=== PATIENT | female | born 1970 | race Caucasian/White ===

== ENCOUNTER → 2021-04-17 | Outpatient (CLI) | payer BC ==
[~2021-04-17] MED LIST: ATOR10TA60 PO; BUPIVACAINE MPF 0.25% 10 ML VIAL. ONE; CYCL10TA19 PO; IOHEXOL 180 MG/ML 10 ML VIAL. ONE; LOSA-73 PO; methylPREDNISolone ACETATE 40 MG/ML VIAL. ONE; methylPREDNISolone ACETATE 80 MG/ML VIAL. ONE
--- NOTE | 2021-04-17 13:00 | PDOC1 ---
INITIAL PAIN CONSULT DATE OF SERVICE: DOS: DATE: 04/17/21 TIME: 12:51 CHIEF COMPLAINT: Chief Complaint: Right-sided low back pain HISTORY OF PRESENT ILLNESS: 50-year-old female presents history of pain in the low back on the right side for about 2 years status post previous hip surgery. Patient reports pain in the low back itself not radiating in the hip or the lower extremity but just in the low back on the right side only patient reports this is been going on for about 2 years is worse with standing walking changing positions sitting for prolonged periods getting up from a seated position especially as it during sleep about once or twice a night. Patient reports is constant and throbbing in the low back intermittent intensity always present radiating across the low back at times into the midline but not to the left patient reports is primarily worse in the evening or at night also described as aching in the low back itself primarily. Patient reports that again it wakes her from sleep once or twice a night does not affect her bowel bladder control but does affect her ability to walk she feels as stiffness with driving sitting or standing for more than 20 to 30 minutes. Patient has had trigger point injections physical therapy epidural injections chiropractic treatment and exercise which is ongoing also taking cyclobenzaprine which is helpful patient tried [id number] Tylenol but anti-inflammatories do upset her stomach so she is not been using those. Patient is doing yoga swimming which he stopped doing this he recently because of pain. Patient rates disability rating 0-10 10 being the worst as a 4 family home responsibilities and social activity 6 with recreation 3 with occupation to a sexual behavior and self-care/support activities specially sleeping. Patient did have a MRI scan lumbar spine showing multilevel disc degeneration and facet arthropathy most pronounced on the right at L4-5. PAST MEDICAL HISTORY: PMH: Hypertension, arthritis, bone spurs right hip PREVIOUS SURGERIES: Past Surgical Hx: x2, tubal ligation, right hip surgery CURRENT MEDICATIONS: Current Meds: Active Scripts Medications Dose Route/Sig Max Daily Dose Days Date Category Losartan Potassium 50 Mg Tablet 50 Mg PO DAILY 04/17/21 Reported Cyclobenzaprine Hcl 10 Mg Tablet 1 Tab PO TID 04/17/21 Reported Atorvastatin Calcium 10 Mg Tablet 10 Mg PO HS 04/17/21 Reported ALLERGIES; Allergies: Coded Allergies: ibuprofen (Verified Allergy, Severe, ulsers, 04/17/21) Sulfa (Sulfonamide Antibiotics) (Verified Allergy, Intermediate, rash, 04/17/21) latex (Verified Allergy, Intermediate, rash, 04/17/21) FAMILY HISTORY: Family Hx: No previous family history. SOCIAL HISTORY: Social Hx: Patient is under alcohol does not smoke says any illegal illicit or recreational drugs is lives with her spouse has 2 children at home and lives in [place], [place] REVIEW OF SYSTEMS: ROS: Positive for those items mentioned in history of present illness, all systems are reviewed, otherwise negative ,and are complete full and well-documented on patient's chart. PHYSICAL EXAM: VS: Blood pressure is 150/100 pulse 105 respirations 18 temperature is 98.3 F height is 5 feet 2 inches weight is 206 pounds PE: PHYSICAL EXAMINATION: GENERAL: The patient is awake, alert, oriented, appropriate, very pleasant in demeanor HEENT: Shows normocephalic, atraumatic. Extraocular movements are intact and symmetrical. Oral cavity: Mucous membranes moist and pink. Dentition is intact. NECK: Shows anterior throat supple without palpable lymphadenopathy noted. Swallow reflex symmetrical. CHEST: Shows normal on inspection. Breath sounds are clear bilaterally, distant but no rales or. HEART: Shows S1, S2 clear. No murmurs auscultated. ABDOMEN: Soft, nontender, nondistended, obese. No palpable organomegaly is noted. No rebound or guarding demonstrated. BACK: Shows spine grossly in the midline. Normal-appearing cervical lordotic curvature. There is increased thoracic kyphosis, some flattening of the lumbar lordotic curvature. Lumbar paraspinous muscles show symmetrical on inspection, on palpation shows some moderate tenderness diffusely throughout the upper, middle and lower distribution of the paraspinous muscles bilaterally and also into the lower thoracic paraspinous musculature, firm and tender, but without specific trigger points, without radiation of pain. The patient has good rotational motion of the lumbar spine, both laterally as well as extension and flexion with moderate tenderness with right lateral rotation as well as left lateral rotation and extension significantly of the lumbar spine greater than 10 degrees, forward flexion is performed at 45 degrees without difficulty. No tenderness over the spinous processes, sacrum or sacroiliac regions. EXTREMITIES: Lower extremities show deep tendon reflexes 2+ in the patellar and tendo calcaneus tendons. Motor exam is 4 on a scale of 5 with right dorsiflexion, extension, quadriceps and hamstring flexion and 5/5 on the left. Peripheral pulses are 1+ no posterior tibial. No peripheral edema is noted bilaterally. Lower extremities are warm and dry to touch, equal in color and a ppearance. Straight leg raise noted to be negative bilaterally. Gaenslen's and Hilario's maneuvers are negative bilaterally as well. The patient is able to stand, stand on her toes without significant difficulty loss of balance walks with a normal-appearing gait does not appear to favor the right or left lower extremity significantly is not use any assistive devices to ambulate. SKIN: Shows warm and dry, good turgor. No edema. No sores, rashes or bruising throughout. IMPRESSION: Impression: 50-year-old female with approximate 2-year history right-sided pain consistent with facet agenic pain and degenerative disc disease. MRI scan lumbar spine as noted Hypertension Arthritis Obesity Plan: Options were discussed with the patient including serve medical managements, physical therapies, interventional techniques. Patient like to pursue interventional techniques. We discussed a right-sided L4-5 and L5-S1 facet medial branch blocks with fluoroscopic guidance, using description as well as anatomical models to describe the procedure. Risks were discussed including but not limited to: Bleeding, infection, possibility of epidural hematoma and subsequent neurological compromise, dural puncture, headaches, spinal cord and/or nerve damage, side effects of steroid medication, and poor results regarding pain control. Patient understands and wished to proceed. Patient return to clinic in approximately 2 weeks for follow-up, was counseled as return appointment, typical, and side effects to be aware of. Under sterile prep and drape using C-arm fluoroscopic guidance AP and lateral and oblique views, right L4-5 and L5-S1 facet joint MB's injections were performed, using quinke needles with stylette's x2, medications injected: 120 mg Depo-Medrol +2cc 0.25% bupivacaine +1 cc contrast. Condition at discharge stable patient tolerated the procedure well and no complications. YANN KO MD Apr 17, 2021 13:00
--- NOTE | 2021-04-17 13:01 | PDOC4 ---
Procedure Note: ICD 10 Code: ICD 10 Code: M4 7.816 M4 7.817 M51.36 Procedure Note: Patient was consented for right-sided L4-5 and L5-S1 facet medial branch blocks with fluoroscopic guidance. Risks were discussed including but not limited to: Bleeding, infection, possibility of epidural hematoma and subsequent neurol ogical compromise, dural puncture, headaches, spinal cord and/or nerve damage, side effects of steroid medication, and poor results regarding pain control. Patient understands and wished to proceed. Under sterile prep and drape using C-arm fluoroscopic guidance AP and lateral and oblique views, right L4-5 and L5-S1 facet joint MB's injections were performed, using quinke needles with stylette's x2, medications injected: 120 mg Depo-Medrol +2cc 0.25% bupivacaine +1 cc contrast. Condition at discharge jose armando stallings patient tolerated the procedure well and no complications. YANN KO MD Apr 17, 2021 13:01
== END | disposition home or self-care (01) ==
LOC: PNCL 08:05
PROVIDERS: ATTEND Anesthesiology
DX: M51.36 Other intervertebral disc degeneration, lumbar region (principal); M47.817 Spondylosis without myelopathy or radiculopathy, lumbosacral region; Z88.2 Allergy status to sulfonamides; Z91.040 Latex allergy status; Z88.8 Allergy status to other drugs, medicaments and biological substances
CPT/HCPCS: 64493; 64494; J1030; J1040; J3490; Q9965

== ENCOUNTER → 2021-05-13 | Outpatient (CLI) | payer BC ==
--- NOTE | 2021-05-13 08:46 | PDOC ---
Progress Note - Pain Clinic Date of Service: DOS: DATE: 05/13/21 TIME: 08:42 Diagnosis: Dx: Lumbar and lumbosacral spondylosis History or Present Illness: HPI: 50-year-old female returns for follow-up status post right-sided L4-5 and L5-S1 facet medial branch blocks with about 80% improvement for several weeks following the injection patient reports that the pain is returning now but still about 50% improved even after several weeks patient reports that he increase activities greater ease and comfort walking greater distances doing household activities work activities distance walking especially much better patient reports he is sleeping better as well but the pain is beginning to awaken her from sleep over the past 1 week or so patient reports no bowel or bladder incontinence patient reports pain is in the low back itself not radiating to the right lower extremity but only on the right side into the right lateral aspect of the back patient ports aching sharp dull tight alternating rated a 6 on scale 10 is worse over the past week 5 on average to its least and is a 5 today. Patient reports no bowel or bladder incontinence or other complaints. Physical Exam: VS: Blood pressure is 143/92 pulse 99 respirations 18 temperature 98.1 F height is 5 foot 1 inch weight is 202 pounds PE: PHYSICAL EXAMINATION: GENERAL: The patient is awake, alert, oriented, appropriate, very pleasant in demeanor HEENT: Shows normocephalic, atraumatic. Extraocular movements are intact and symmetrical. Oral cavity: Mucous membranes moist and pink. Dentition is intact. NECK: Shows anterior throat supple without palpable lymphadenopathy noted. Swallow reflex symmetrical. CHEST: Shows normal on inspection. Breath sounds are clear bilaterally, distant no rales or rhonchi. HEART: Shows S1, S2 clear. No murmurs auscultated. ABDOMEN: Soft, nontender, nondistended, obese. No palpable organomegaly is noted. BACK: Shows spine grossly in the midline. Normal-appearing cervical lordotic curvature. There is slightly increased thoracic kyphosis, some minor flattening of the lumbar lordotic curvature. Lumbar paraspinous muscles show symmetrical on inspection, on palpation shows some moderate tenderness diffusely throughout the upper, middle and lower distribution of the paraspinous muscles but without specific trigger points, without radiation of pain. The patient has good rotati onal motion of the lumbar spine, both laterally as well as extension and flexion with significant pain rotating to the right as well as extension and axial loading of the lumbar spine with twisting to the right side forward flexion is performed at 45 degrees without difficulty as is left lateral rotation. No tenderness over the spinous processes, sacrum or sacroiliac regions. EXTREMITIES: Lower extremities show deep tendon reflexes 2+ in the patellar and tendo calcaneus tendons. Motor exam is 4 on a scale of 5 with right dorsiflexion, extension, quadriceps and hamstring flexion and 5/5 on the left. Peripheral pulses are 1+ posterior tibial. No peripheral edema is noted bilaterally. Lower extremities are warm and dry to touch, equal in color and appearance. SKIN: Shows warm and dry, good turgor. No edema. No sores, rashes or bruising throughout. Procedure: Procedure: Options discussed with patient. Patient old chart was reviewed as her current medication regimen updated current review of systems updated today as well. We will proceed with a right-sided L4-5 and L5-S1 medial branch facet blocks today with fluoroscopic guidance. Risks were discussed including but not limited to: Bleeding, infection, possibility of epidural hematoma and subsequent neurological compromise, dural puncture, headaches, spinal cord and/or nerve damage, side effects of steroid medication, and poor results regarding pain control. Patient understands and wished to proceed. Patient will return to the clinic in approximately 2 weeks for follow-up, was counseled as return appointment, activity level, and side effect to be aware of. Medication Injected: Med Injected: Under sterile prep and drape using C-arm fluoroscopic guidance AP and lateral and oblique views, right L4-5 and L5-S1 facet joint MB's injections were performed, using quinke needles with stylette's x4,, medications injected: 80mg Depo-Medrol +2cc 0.25% bupivacaine +1 cc contrast. Condition at discharge stable patient tolerated the procedure well and no complications. Condition at Discharge: Condition at Discharge: Condition at discharge stable, pain tolerated the procedure well and had no complications. YANN KO MD May 13, 2021 08:46
--- NOTE | 2021-05-13 08:47 | PDOC4 ---
Procedure Note: ICD 10 Code: ICD 10 Code: M4 7.816 M4 7.817 Procedure Note: Patient is consented for right-sided L4-5 and L5-S1 facet medial branch blocks with fluoroscopic guidance. Risks were discussed including but not limited to: Bleeding, infection, possibility of epidural hematoma and subsequent neurological compromise, dural puncture, headaches, spinal cord and/or nerve damage, side effects of steroid medication, and poor results regarding pain control. Patient understands and wished to proceed. Under sterile prep and drape using C-arm fluoroscopic guidance AP and lateral and oblique views, right L4-5 and L5-S1 facet joint MB's injections were performed, using quinke needles with stylette's x4,, medications injected: 80mg Depo-Medrol +2cc 0.25% bupivacaine +1 cc contrast. Condition at discharge stable patient tolerated the procedure well and no complications. YANN KO MD May 13, 2021 08:47
== END | disposition home or self-care (01) ==
LOC: PNCL 07:44
PROVIDERS: ATTEND Anesthesiology
DX: M47.816 Spondylosis without myelopathy or radiculopathy, lumbar region (principal); M47.817 Spondylosis without myelopathy or radiculopathy, lumbosacral region; Z79.899 Other long term (current) drug therapy; Z88.2 Allergy status to sulfonamides; Z91.040 Latex allergy status; Z88.8 Allergy status to other drugs, medicaments and biological substances
CPT/HCPCS: 64493; 64494; J1040; J3490; Q9965; J1030

== ENCOUNTER → 2021-07-30 | Outpatient (CLI) | payer BC ==
[~2021-07-30] MED LIST changes: -BUPIVACAINE MPF 0.25% 10 ML VIAL. ONE; -IOHEXOL 180 MG/ML 10 ML VIAL. ONE; -methylPREDNISolone ACETATE 40 MG/ML VIAL. ONE; -methylPREDNISolone ACETATE 80 MG/ML VIAL. ONE
--- NOTE | 2021-07-30 08:34 | PDOC ---
Progress Note - Pain Clinic Date of Service: DOS: DATE: 07/30/21 TIME: 08:27 Diagnosis: Dx: Lumbar radiculopathy with lumbar degenerative disease and lumbar spinal stenosis Lumbar and lumbosacral spondylosis Right sacroiliitis History or Present Illness: HPI: 50-year-old female last seen in April 2021 had facet injections with about 50% improvement but now has new pain radiating in the right lower extremity and into the right posterior hip patient reports she is recently seen her neurosurgeon who is recommending conservative treatment at this time and no surgical alternatives but still significant pain in the low back right lower extremity posterior gluteus in the posterior aspect of the hip and into the right thigh anterior thigh medial thigh and the medial knee on the right side worse with walking standing changing positions better with sitting or laying down is waking her from sleep at least every 2 hours patient reports is a 5 on a scale of 10 is worst over the past week 3 on average 2 at its least better with sitting but for sitting for greater than an hour the pain increases and has some radiation into the right leg as well. Patient reports no loss of motor function no bowel or bladder incontinence but significant pain in the low back and the right leg as well as the posterior hip patient reports is tight and burning in the back radiating shooting the leg can be constant on and off in intensity worse with time standing and walking. Patient reports no bowel or bladder incontinence. Patient reports some fatigability in the right lower extremity with standing and walking greater than about 30 to 40 minutes. Patient's lumbar MRI scan was reviewed with her once again today as well. Patient has been undergoing chiropractic treatment regularly which is helpful but only te mporarily also taking oral analgesics and cyclobenzaprine with moderate decrease in pain but only temporarily as well. Physical Exam: VS: Blood pressure is 136/99 pulse 91 respirations 18 temperature 98.1 F height 5 foot 1 his weight is 203 pounds. PE: PHYSICAL EXAMINATION: GENERAL: The patient is awake, alert, oriented, appropriate, very pleasant in demeanor HEENT: Shows normocephalic, atraumatic. Extraocular movements are intact and symmetrical. Oral cavity: Mucous membranes moist and pink. Dentition is intact. NECK: Shows anterior throat supple without palpable lymphadenopathy noted. Swallow reflex symmetrical. CHEST: Shows normal on inspection. Breath sounds are clear bilaterally, distant but no rales or rhonchi. HEART: Shows S1, S2 clear. No murmurs auscultated. ABDOMEN: Soft, nontender, nondistended. No palpable organomegaly is noted. BACK: Shows spine grossly in the midline. Normal-appearing cervical lordotic curvature. There is slightly increased thoracic kyphosis, some minor flattening of the lumbar lordotic curvature. Lumbar paraspinous muscles show symmetrical on inspection, on palpation shows some moderate tenderness diffusely throughout the upper, middle and lower distribution of the paraspinous muscles without specific trigger points, without radiation of pain. The patient has good rotational motion of the lumbar spine, both laterally as well as extension and flexion without significant difficulty. Patient has significant tenderness with palpation over the posterior superior iliac spine on the right as well as the superior aspect of the sacroiliac joint on the right but nontender on the left. EXTREMITIES: Lower extremities show deep tendon reflexes 2+ in the patellar and tendo calcaneus tendons. Motor exam is 4 on a scale of 5 with right dorsiflexion, extension, quadriceps and hamstring flexion and 5/5 on the left. Peripheral pulses are 1+ posterior tibial. No peripheral edema is noted bilaterally. Lower extremities are warm and dry to touch, equal in color and appearance. Straight leg raise noted positive on the right at approximate 45 degrees decreased with knee flexion left side is negative. Patient has a positive Gaenslen's maneuver on the right left side is negative, also positive Hilario's maneuver on the right and pain with sacroiliac distraction on the right but not the left as well. SKIN: Shows warm and dry, good turgor. No edema. No sores, rashes or bruising throughout. Procedure: Procedure: Options were discussed with the patient. Patient's old chart was reviewed as her current medication regimen updated current review of systems updated today as well. We will preauthorize patient for lumbar epidural steroid injection as she has clinical radiculopathy and L3-4 distribution on the right side with MRI scan demonstrating significant stenosis at the L3-4 level with right paracentral disc protrusion and mild right foraminal stenosis at the L3-4 level as well. Patient also has significant sacroiliitis with Gaenslen's maneuver, Hilario's maneuver and sacroiliac distraction on the right but not the left. Patient will wait for preauthorization with her insurance provider, once obtained with return for translaminar approach L3-4 level lumbar epidural steroid injection with fluoroscopic guidance at that time. In the meantime, patient will continue with stretching strength exercises chiropractic treatment as currently as well as oral analgesics as currently. Medication Injected: Med Injected: None Condition at Discharge: Condition at Discharge: Condition at discharge is stable. YANN KO MD Jul 30, 2021 08:34
== END | disposition home or self-care (01) ==
LOC: PNCL 08:01
PROVIDERS: ATTEND Anesthesiology
DX: M51.16 Intervertebral disc disorders with radiculopathy, lumbar region (principal); M48.061 Spinal stenosis, lumbar region without neurogenic claudication; M47.26 Other spondylosis with radiculopathy, lumbar region; M47.27 Other spondylosis with radiculopathy, lumbosacral region; M46.1 Sacroiliitis, not elsewhere classified; Z79.899 Other long term (current) drug therapy; Z88.2 Allergy status to sulfonamides; Z91.040 Latex allergy status
CPT/HCPCS: 99212; G0463

== ENCOUNTER → 2021-09-23 | Outpatient (CLI) | payer BC ==
[~2021-09-23] MED LIST changes: +DEXAMETHASONE PRES.FREE 10 MG/ML VIAL. ONE; +IOHEXOL 180 MG/ML 10 ML VIAL. ONE
--- NOTE | 2021-09-23 10:17 | PDOC ---
Progress Note - Pain Clinic Date of Service: DOS: DATE: 09/23/21 TIME: 10:13 Diagnosis: Dx: Lumbar radiculopathy with lumbar degenerative disease and lumbar spinal stenosis Right sacroiliitis History or Present Illness: HPI: 50-year-old female returns for follow-up status post facet injections May 13, 2021 patient reports 50% improvement for about the first 2 weeks however is having pain now which is changed and is now radiating to the right lower extremity posterior gluteus lateral thigh anterior thigh medial thigh into the medial anterior knee patient reports is for a scale of 10 at all times worst least and average is a 4 today patient describes aching dull sharp shooting Cramping and stabbing radiating and severe at times patient reports is worse with walking standing changing positions getting up from a seated position and putting all her weight on her right leg. Patient reports also wakes her from sleep is causing her to toss and turn about every 2-3 hours and is not getting much sleep because of it. Patient reports no bowel or bladder incontinence no loss of motor function with significant fatigability of the right lower extremity as well patient continues to do water aerobics about 3 times a week and encouraged her to continue this as tolerated as well. Patient reports no bowel or bladder incontinence no motor or sensory deficits but again significant fatigability of the right lower extremity. Reviewed patient's MRI scan with her once again today as well. Patient has broad right paracentral disc retrusion L3-4 right foraminal stenosis present at the L3-4 level as well. Physical Exam: VS: Blood pressure is 151/103 pulse 116 respirations 18 temperature 90.4 F height is 5 foot 1 his weight is 201 pounds. PE: PHYSICAL EXAMINATION: GENERAL: The patient is awake, alert, oriented, appropriate, very pleasant in demeanor HEENT: Shows normocephalic, atraumatic. Extraocular movements are intact and symmetrical. Oral cavity: Mucous membranes moist and pink. Dentition is intact. NECK: Shows anterior throat supple without palpable lymphadenopathy noted. Swallow reflex symmetrical. CHEST: Shows normal on inspection. Breath sounds are clear bilaterally, no rales rhonchi or wheezes auscultated. HEART: Shows S1, S2 clear. No murmurs auscultated. ABDOMEN: Soft, nontender, nondistended. No palpable organomegaly is noted. BACK: Shows spine grossly in the midline. Normal-appearing cervical lordotic curvature. There is mildly increased thoracic kyphosis, some flattening of the lumbar lordotic curvature. Lumbar paraspinous muscles show symmetrical on inspection, on palpation shows some moderate tenderness diffusely throughout the upper, middle and lower distribution of the paraspinous muscles without specific trigger points, without radiation of pain. The patient has good rotational motion of the lumbar spine, both laterally as well as extension and flexion without significant difficulty. No tenderness over the spinous processes, sacrum or sacroiliac regions. EXTREMITIES: Lower extremities show deep tendon reflexes 2+ in the patellar and tendo calcaneus tendons. Motor exam is 4 on a scale of 5 with right dorsiflexion, extension, quadriceps and hamstring flexion and 5/5 on the left. Peripheral pulses are 1+ posterior tibial. No peripheral edema is noted bilaterally. Lower extremities are warm and dry. SKIN: Shows warm and dry, good turgor. No edema. No sores, rashes or bruising throughout. Procedure: Procedure: Options discussed with the patient. Patient's old chart was reviewed as her current medication regimen updated current review of systems updated today as well. We will proceed with a lumbar epidural steroid injection today with fluoroscopic guidance. Risks were discussed including but not limited to: Bleeding, infection, possibility of epidural hematoma and subsequent neurological compromise, dural puncture, headaches, spinal cord and/or nerve damage, side effects of steroid medication, and poor results regarding pain control. Patient understands and wished to proceed. Patient will return to clinic in approximately 2 weeks for follow-up, was counseled as to return appointment, activity level, and side effects to be aware of. Medication Injected: Med Injected: Patient was consented for lumbar epidural steroid injection with fluoroscopic guidance. Risks were discussed including but not limited to: Bleeding, infection, possibility of epidural hematoma and subsequent neurological compromise, dural puncture, headaches, spinal cord and/or nerve damage, side effects of steroid medication, and poor results regarding pain control. Patient understands and wished to proceed. Procedure is lumbar epidural steroid injection under local anesthetic using sterile prep and drape at the L3-4 level using C-arm fluoroscopic guidance in both AP and lateral views medications injected is 20 mg dexamethasone +10mL preservative-free normal saline and 2 mL contrast- condition at discharge is stable patient tolerated procedure well had no complications. Condition at Discharge: Condition at Discharge: Condition at discharge stable, patient tolerated procedure well and had no complications. YANN KO MD Sep 23, 2021 10:17
--- NOTE | 2021-09-23 10:18 | PDOC4 ---
Procedure Note: ICD 10 Code: ICD 10 Code: M54.16 M51.36 M4 8.06 Procedure Note: Patient was consented for lumbar epidural steroid injection with fluoroscopic guidance. Risks were discussed including but not limited to: Bleeding, infection, possibility of epidural hematoma and subsequent neurological compromise, dural puncture, headaches, spinal cord and/or nerve damage, side effects of steroid medication, and poor results regarding pain control. Patient understands and wished to proceed. Procedure is lumbar epidural steroid injection under local anesthetic using ekaterina rile prep and drape at the L3-4 level using C-arm fluoroscopic guidance in both AP and lateral views medications injected is 20 mg dexamethasone +10mL preservative-free normal saline and 2 mL contrast- condition at discharge is stable patient tolerated procedure well had no complications. YANN KO MD Sep 23, 2021 10:18
== END | disposition home or self-care (01) ==
LOC: PNCL 09:40
PROVIDERS: ATTEND Anesthesiology
DX: M51.16 Intervertebral disc disorders with radiculopathy, lumbar region (principal); M48.061 Spinal stenosis, lumbar region without neurogenic claudication; M46.1 Sacroiliitis, not elsewhere classified; Z79.899 Other long term (current) drug therapy; Z88.2 Allergy status to sulfonamides; Z91.040 Latex allergy status; Z88.8 Allergy status to other drugs, medicaments and biological substances
CPT/HCPCS: 62323; J1100; Q9965